=== PATIENT | male | born 1960 | race Caucasian/White ===

== ENCOUNTER 2018-02-28 09:12 | Day surgery (SDC) | payer OTHER, MEDICARE ==
[2018-02-28] VITALS (10 sets, daily range): BP systolic 125–146; BP diastolic 71–89; PULSE 68–79; TEMP 97.7
[~2018-02-28] VITALS: Ht 177.8 cm; Wt 129.5 kg
[2018-02-28 10:03] LABS: HEMATOCRIT 39.4 % (42.0-52.0); HEMOGLOBIN 12.7 g/dl (13.5-18.0); MEAN CELL VOLUME 89 fl (80.0-100.0); MEAN CORPUSCULAR HEMOGLOBIN 29 pg (27.0-31.0); MEAN CORPUSCULAR HGB CONC 32 g/dl (33.0-37.0); MEAN PLATELET VOLUME 9.7 fl (7.4-10.4); PLATELET COUNT 222 K/mm3 (130-400); RED BLOOD COUNT 4.43 M/mm3 (4.20-5.60); REDCELL DISTRIBUTION WIDTH-CV 15.6 % (11.5-14.5)
[2018-02-28 10:04] LABS: PROTHROMBIN TIME 11.7 SECONDS (9.7-12.8)
[2018-02-28 10:08] LABS: CREATININE, serum 0.94 mg/dL (0.66-1.25); POTASSIUM 4.4 mmol/L (3.4-5.0)
[2018-02-28] MEDS ORDERED: MULTI VITAMINS1 TAB PO (10:44)
[2018-02-28] MEDS ORDERED: ASPIRIN 81M81 MG/TA2 PO (10:44)
[2018-02-28] MEDS ORDERED: ZESTRIL 10MG10 MG PO (10:45)
[2018-02-28] MEDS ORDERED: KLOR-CON M2020 MEQ PO (10:45)
[2018-02-28] MEDS ORDERED: LOPRESSOR100 MG PO (10:46)
[2018-02-28] MEDS ORDERED: GLUCOTROL10 MG PO (10:46)
[2018-02-28] MEDS ORDERED: LIPITOR20 MG PO (10:46)
[2018-02-28] MEDS ORDERED: LASIX 40MG TABL40 MG PO (10:47)
== END 2018-02-28 19:01 | disposition home or self-care (01) ==
LOC: COL.CAR 09:12
PROVIDERS: Internal Medicine Interventional Cardiology
DX: I50.22 Chronic systolic (congestive) heart failure (principal); I25.10 Atherosclerotic heart disease of native coronary artery without angina pectoris; Z95.810 Presence of automatic (implantable) cardiac defibrillator; R60.0 Localized edema; G47.33 Obstructive sleep apnea (adult) (pediatric); Z79.899 Other long term (current) drug therapy; Z79.82 Long term (current) use of aspirin; Z95.5 Presence of coronary angioplasty implant and graft; I34.0 Nonrheumatic mitral (valve) insufficiency; Z87.891 Personal history of nicotine dependence; I25.2 Old myocardial infarction
CPT/HCPCS: J2250; J3010; Q9967

== ENCOUNTER → 2020-02-23 | Day surgery (SDC) | payer MEDICARE ==
[2020-02-23] VITALS (7 sets, daily range): BP systolic 106–134; BP diastolic 61–93; PULSE 67–93; TEMP 97.7–99
[~2020-02-23] VITALS: Ht 177.8 cm; Wt 130.5 kg
[~2020-02-23] MED LIST: ASPIRIN 81M81 MG/TA2 PO; ENTRESTO 24 MG1 EACH PO; GLUCOTROL10 MG PO; KLOR-CON M2020 MEQ PO; LASIX 40MG TABL40 MG PO; LIPITOR20 MG PO; LOPRESSOR100 MG PO; MULTI VITAMINS1 TAB PO; ONE-A-DAY ESSE1 EACH PO; ZESTRIL 10MG10 MG PO
--- NOTE | 2020-02-23 08:39 | NUR ---
TO RM AT 0755- CALL LIGHT IN [place] WILL CALL MADDIE TO BE PICKED UP.
--- NOTE | 2020-02-23 09:10 | NUR ---
TO RM 3 PER CART FROM ENDOSCOPY. AMBULATED TO RECLINER WITH ASSIST. DENIES PAIN OR DISCOMFORT. C/O ABDOMEN FEELING UPSET, BUT DENIES NAUSEA.
--- NOTE | 2020-02-23 09:25 | NUR ---
RECEIVED SPRITE AND CRACKERS.
--- NOTE | 2020-02-23 09:40 | NUR ---
ATE 100% AND TOLERATED WELL TEXTING ON PHONE. DISCONTINUED IV AND INT- PATIENT GETTING DRESSED.
--- NOTE | 2020-02-23 09:57 | NUR ---
DR MADRIGAL INTO TALK WITH PATIENT.
--- NOTE | 2020-02-23 10:00 | NUR ---
TO RM 4 PER CART FROM ENDOSCOPY. ALERT ORIENTED X3, TALKING WITH STAFF. AMBULATED TO RECLINER WITH ASSIST, TOLERATED WELL.
--- NOTE | 2020-02-23 10:15 | NUR ---
DR MADRIGAL INTO TALK WITH PATIENT RECEIVED COFFEE AND MUFFIN.
--- NOTE | 2020-02-23 10:30 | NUR ---
ATE 100% AND TOLERATED WELL.
--- NOTE | 2020-02-23 10:45 | NUR ---
RECEIVED DISCHARGE INSTRUCTIONS AND VERBALIZED UNDERSTANDING. DISCONTINUED IV AND INT- CATHETER INTACT.
--- NOTE | 2020-02-23 11:03 | NUR ---
DISCHARGED PER WC BY NURSING STAFF TO PRIVATE CAR IN CARE OF MADDIE.
== END ==
LOC: SDCO 07:47
DX: Z12.11 Encounter for screening for malignant neoplasm of colon (principal); D12.3 Benign neoplasm of transverse colon; K64.0 First degree hemorrhoids; I50.9 Heart failure, unspecified; Z86.010 Personal history of colon polyps; I25.10 Atherosclerotic heart disease of native coronary artery without angina pectoris; I25.2 Old myocardial infarction; I10 Essential (primary) hypertension; E11.9 Type 2 diabetes mellitus without complications; E78.5 Hyperlipidemia, unspecified; E66.9 Obesity, unspecified; F17.210 Nicotine dependence, cigarettes, uncomplicated; Z79.82 Long term (current) use of aspirin; Z79.84 Long term (current) use of oral hypoglycemic drugs; Z95.5 Presence of coronary angioplasty implant and graft; Z79.899 Other long term (current) drug therapy; Z95.810 Presence of automatic (implantable) cardiac defibrillator; Z95.1 Presence of aortocoronary bypass graft; Z68.45 Body mass index [BMI] 70 or greater, adult
CPT/HCPCS: J2704; J7030

== ENCOUNTER 2020-05-03 12:22 | Day surgery (SDC) | payer MEDICARE ==
[~2020-05-03] VITALS: Ht 177.8 cm; Wt 132.1 kg
[2020-05-03] VITALS (9 sets, daily range): BP systolic 95–108; BP diastolic 33–64; PULSE 62–67; TEMP 98.1
[2020-05-03 13:23] LABS: HEMATOCRIT 45.5 % (42.0-52.0); HEMOGLOBIN 15.1 g/dl (13.5-18.0); MEAN CELL VOLUME 93 fl (80.0-100.0); MEAN CORPUSCULAR HEMOGLOBIN 31 pg (27.0-31.0); MEAN CORPUSCULAR HGB CONC 33 g/dl (33.0-37.0); MEAN PLATELET VOLUME 10.2 fl (7.4-10.4); PLATELET COUNT 194 K/mm3 (130-400); RED BLOOD COUNT 4.87 M/mm3 (4.20-5.60); REDCELL DISTRIBUTION WIDTH-CV 13.8 % (11.5-14.5)
[2020-05-03 13:28] LABS: INR 1.1 (0.8-3.0); PROTHROMBIN TIME 11.9 SECONDS (9.7-12.8)
[2020-05-03 13:37] LABS: CALCIUM 9.1 mg/dL (8.4-10.2); CREATININE, serum 1.07 (0.66-1.25); POTASSIUM 4.5 mmol/L (3.4-5.0)
--- NOTE | 2020-05-03 14:49 | NUR ---
SEE MERGE DOCUMENTATION FOR MEDICATION ADMINISTRATION TIMES AND INTRA/POST PROCEDURE SEDATION ASSESSMENTS.
--- NOTE | 2020-05-03 16:00 | NUR ---
Report from Hayder KELLEY. Transferred by bed from physical laboratory assistant. Angiomax at 41 ml/hr to left AC. VSS. Right groin CD&I. bedside
--- NOTE | 2020-05-03 18:15 | NUR ---
INT discontinued intact. Ambulated to bathroom with steady gait, right groin site remains CD&I and soft.
--- NOTE | 2020-05-03 18:30 | NUR ---
Discharge instructions given . Hortencia KELLEY transferred pt to private car by darwin
== END 2020-05-03 18:30 | disposition home or self-care (01) ==
LOC: COL.CAR 12:22
PROVIDERS: Internal Medicine Interventional Cardiology
DX: I25.10 Atherosclerotic heart disease of native coronary artery without angina pectoris (principal); I50.22 Chronic systolic (congestive) heart failure; I49.01 Ventricular fibrillation; I25.2 Old myocardial infarction; I10 Essential (primary) hypertension; I87.2 Venous insufficiency (chronic) (peripheral); R60.0 Localized edema; I27.20 Pulmonary hypertension, unspecified; G47.33 Obstructive sleep apnea (adult) (pediatric); E66.01 Morbid (severe) obesity due to excess calories; F17.210 Nicotine dependence, cigarettes, uncomplicated; I77.810 Thoracic aortic ectasia; Z68.41 Body mass index [BMI] 40.0-44.9, adult; Z20.828 Contact with and (suspected) exposure to other viral communicable diseases; Z95.810 Presence of automatic (implantable) cardiac defibrillator; Z79.82 Long term (current) use of aspirin; Z95.5 Presence of coronary angioplasty implant and graft; Z79.899 Other long term (current) drug therapy
CPT/HCPCS: J0583; J1644; J2250; J3010; Q9967

== ENCOUNTER → 2021-03-27 | Outpatient (CLI) | payer MEDICARE | LOC: COL.RAD 12:11 | DX: Z01.812 Encounter for preprocedural laboratory examination (principal); J32.0 Chronic maxillary sinusitis; J32.2 Chronic ethmoidal sinusitis | CPT/HCPCS: Q9967 ==